=== PATIENT | female | born 1955 | race Caucasian/White ===

== ENCOUNTER 2019-04-28 10:43 | Day surgery (SDC) | payer OTHER ==
[~2019-04-28 10:43] MED LIST: Brimonidine 0.2% Ophth Soln 15 ML Bottle EYELF SCH; Brimonidine 0.2% Ophth Soln 5 ML Bottle EYELF SCH; Cefuroxime 10 MG/ML SYRINGE EYELF SCH; Lidocaine 1% PF 2 ML SDV INJECT SCH; Pilocarpine 4% Ophth Soln 15 ML Bot EYELF SCH
[2019-04-28] MEDS: Polymyxin B/Trimethoprim 10 ML Bottle EYELF SCH ×3 (11:54→13:40)
[2019-04-28] MEDS: Brimonidine 0.2% Ophth Soln 15 ML Bottle EYELF SCH ×3 (12:00→13:40)
[2019-04-28] MEDS: Phenylephrine 2.5% Ophth Soln 2 ML Bot EYELF SCH ×5 (12:06→13:23)
[2019-04-28] MEDS: Tropicamide 1% Ophth Soln 15 ML Bottle EYELF SCH ×4 (12:11→13:05)
--- NOTE | 2019-04-28 12:12 | PCM.PREANE ---
Preanesthetic Assessment - Anesthesia/Transfusion/Family Hx Anesthesia History: Prior Anesthesia Without Reaction Family History of Anesthesia Reaction: No Transfusion History: No Prior Transfusion(s) - Review of Systems General: No Symptoms Pulmonary: No Symptoms Cardiovascular: No Symptoms Gastrointestinal: No Symptoms Neurological: No Symptoms Other: Reports: None - Physical Assessment NPO Status Date: 04/27/19 NPO Status Time: 20:00 Pulse: 66 O2 Sat by Pulse Oximetry: 99 Respiratory Rate: 16 Blood Pressure: 130/77 Temperature: 98.3 C ASA Class: 2 Mental Status: Alert & Oriented x3 Airway Class: Mallampati = 1 Dentition: Reports: Normal Dentition Thyro-Mental Finger Breadths: 3 Mouth Opening Finger Breadths: 3 ROM/Head Extension: Full Lungs: Clear to Auscultation, Normal Respiratory Effort - Allergies Allergies/Adverse Reactions: Allergies Allergy/AdvReac Type Severity Reaction Status Date / Time No Known Allergies Allergy Verified 04/25/19 13:35 - Acknowledgements Anesthesia Type Planned: MAC Pt an Appropriate Candidate for the Planned Anesthesia: Yes Alternatives and Risks of Anesthesia Discussed w Pt/Guardian: Yes Pt/Guardian Understands and Agrees with Anesthesia Plan: Yes PreAnesthesia Questionnaire HEENT History: Reports: Impaired Vision, Other (See Below) Other HEENT History: wears glasses Cardiovascular History: Reports: Arrhythmia (hx SVT-ablation and loop recorder placed in 2017) Respiratory History: Reports: None Gastrointestinal History: Reports: None Genitourinary History: Reports: UTI, Recurrent Musculoskeletal History: Reports: None Neurological History: Reports: None Psychiatric History: Reports: None Endocrine/Metabolic History: Reports: None - Past Surgical History Head Surgeries/Procedures: Reports: None HEENT Surgical History: Reports: None Cardiovascular Surgical History: Reports: Cardiac Ablation (loop recorder placed 2017) Respiratory Surgical History: Reports: None GI Surgical History: Reports: Colonoscopy Female Surgical History: Reports: Breast Biopsy Endocrine Surgical History: Reports: None Neurological Surgical History: Reports: None Musculoskeletal Surgical History: Reports: Carpal Tunnel ((R)) - SUBSTANCE USE Smoking Status *Q: Former Smoker - HOME MEDS Home Medications: Home Meds FLUoxetine HCl [Prozac] 20 mg PO DAILY 04/25/19 [History] - CURRENT (IN HOUSE) MEDS Current Meds: Current Medications Brimonidine Tartrate (Brimonidine Tartrate 0.2% Ophth Soln) 0 ml EYELF ASDIRECTED ANGELA Stop: 04/28/19 18:00 Last Admin: 04/28/19 12:00 Dose: 1 drop Cefuroxime Sodium (Zinacef) 0 mg EYELF ASDIRECTED ANGELA Stop: 04/28/19 18:00 Lidocaine HCl (Xylocaine-Mpf 1%) 0 ml INJECT ASDIRECTED ANGELA Stop: 04/28/19 18:00 Phenylephrine HCl (Jermain-Synephrine 2.5% Ophth Soln) 0 ml EYELF ASDIRECTED ANGELA Stop: 04/28/19 18:00 Pilocarpine HCl (Pilocar 4% Ophth Soln) 0 ml EYELF ASDIRECTED ANGELA Stop: 04/28/19 18:00 Polymyxin/Trimethoprim Sulfate (Polytrim Ophth Soln) 0 ml EYELF ASDIRECTED ANGELA Stop: 04/28/19 18:00 Last Admin: 04/28/19 11:54 Dose: 1 drop Tetracaine HCl (Tetracaine 0.5% Steri-Unit Kimberly) 0 ml EYELF ASDIRECTED ANGELA Stop: 04/28/19 18:00 Tropicamide (Mydriacyl 1% Ophth Soln) 0 ml EYELF ASDIRECTED ANGELA Stop: 04/28/19 18:00 Discontinued Medications Brimonidine Tartrate (Alphagan 0.2% Ophth Soln) 0 ml EYELF ASDIRECTED ANGELA Stop: 04/28/19 18:00 Brimonidine Tartrate (Brimonidine Tartrate 0.2% Ophth Soln) 0 ml EYELF ASDIRECTED ANGELA
[2019-04-28] MEDS: Tetracaine HCl/PF 0.5% 4 ML Bottle EYELF SCH ×2 (13:19→13:29)
--- NOTE | 2019-04-28 13:47 | PCM48HPAN ---
Post Anesthesia Note - EVALUATION WITHIN 48HRS OF ANESTHETIC Vital Signs in Normal Range: Yes Patient Participated in Evaluation: Yes Respiratory Function Stable: Yes Airway Patent: Yes Cardiovascular Function Stable: Yes Hydration Status Stable: Yes Pain Control Satisfactory: Yes Nausea and Vomiting Control Satisfactory: Yes Mental Status Recovered: Yes Pulse Rate: 63 SaO2: 100 Resp Rate: 16 Temperature: 98.3 C Blood Pressure: 123/81
[2019-04-28 13:53] VITALS: BP 118/68
== END 2019-04-28 13:51 | disposition home or self-care (01) ==
LOC: JD.SDS 10:43
PROVIDERS: ATTEND Ophthalmology
DX: H25.813 Combined forms of age-related cataract, bilateral (principal); Z87.891 Personal history of nicotine dependence; Z79.899 Other long term (current) drug therapy
CPT/HCPCS: 66984; J0697; J2001; C1780